=== PATIENT | female | born 1975 | race Caucasian/White ===

== ENCOUNTER → 2016-12-15 | Outpatient (CLI) | payer OTHER | LOC: CIMAGING 07:49 | PROVIDERS: ATTEND Family Medicine | DX: Z12.31 Encounter for screening mammogram for malignant neoplasm of breast (principal) | CPT/HCPCS: G0202 ==

== ENCOUNTER → 2017-03-30 | Outpatient (CLI) | payer OTHER | LOC: FIMAGING 08:32 | PROVIDERS: ATTEND Advanced Practice Midwife | DX: O09.522 Supervision of elderly multigravida, second trimester (principal); Z3A.12 12 weeks gestation of pregnancy ==

== ENCOUNTER → 2017-05-24 | Outpatient (CLI) | payer OTHER | LOC: FIMAGING 13:29 | PROVIDERS: ATTEND Advanced Practice Midwife | DX: O09.522 Supervision of elderly multigravida, second trimester (principal); Z3A.20 20 weeks gestation of pregnancy ==

== ENCOUNTER 2017-10-04 08:00 | Inpatient (IN) | payer OTHER ==
--- NOTE | 2017-09-17 13:41 | GHP ---
[f rep st] PREOP HISTORY AND PHYSICAL PLANNED PROCEDURE: Repeat low transverse section with bilateral salpingectomy. INDICATIONS: History of previous low transverse section and family status is complete. Mary zamora is a 41-year-old 3, para 1-0-1-1, who will be 39+ weeks gestation, who has a history of a previous low transverse section and declines trial of labor and would like to have a repea t section. Patient's estimated date of confinement is 10/08/2017, dated by last menstrual p eriod of 01/01/2017, consistent with a first trimester ultrasound. Patient initiated care w [facility] at 12 weeks of gestation. has been uncomplicated. She has had in creased surveillance due to AMA, but growth has been appropriate. MEDICAL HISTORY: Significant for cervical dysplasia, history of asthma, history of depression which is primarily situational. MEDICATIONS: vitamins, DHA, and folic acid. SURGICAL HISTORY: Primary low transverse section, voluntary termination of , shoul ronak surgeries, foot surgery. ALLERGIES: Latex. No known drug allergies. SOCIAL HISTORY: Patient is . She lives with her and their other child. 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 She denies tobacco, alcohol, or drug use. FAMILY MEDICAL HISTORY: Noncontributory. [employer]ARE HISTORY: Menarche age 18, periods every 28 days. She is a 3, para 1-0-1-1. In 2013 she had a voluntary termination of . In 06/2015, she had a primary low transverse section at 40 and 2/7 weeks' gestation of a 7-pound, 6-ounce female. She had a section for intolerance of labor remote from delivery. She had a nuchal cord x1 and marginal cord insertio n. course was complicated by baby blues, which did not progress to depression. Current has been uncomplicated. Patient does have a history of abnormal Pap smears. She has just had colposcopies. No history of LEEP or cryo surgery noted. She has a history of HPV. De nies any history of any other sexually transmitted diseases. REVIEW OF SYSTEMS: 10-point review of systems is negative. She has positive movement. No los s of fluid. She denies any headache, changes in vision, nausea, vomiting, fevers, or chills. PHYSICAL EXAMINATION: VITAL SIGNS: Stable. GENERAL APPEARANCE: Alert and oriented x3. PSYCH: Ap propriate affect. NECK: Mobile and supple. MUSCULOSKELETAL: Grossly intact. NEURO: Grossly inta ct. ABDOMEN: Gravid, nondistended, nontender. EXTREMITIES: No calf tenderness or edema. PELVIC: Cervical exam is declined. in the vertex presentation. LABS: Blood type O positive. Antibody screen negative. Rubella immune. GBS is still pend ing. HBsAg negative. HIV negative. Her 50 g glucose was normal. ASSESSMENT AND PLAN: 41-year-old, 3, para 1-0-1-1, who will be 39+ weeks' gestation for a re peat low transverse section with a bilateral salpingectomy. Risks and benefits have been re viewed with the patient, and patient has been properly consented. /[id number]/MODL
[2017-10-04] MEDS ORDERED: CITRIC ACID/SODIUM CITRATE 30 ML UDCUP PO ONE (08:24)
[2017-10-04] MEDS ORDERED: LR 500 ML IV ONE (08:24)
[2017-10-04] MEDS ORDERED: LR 1,000 ML IV SCH (08:30)
[2017-10-04 09:23] LABS: PLATELET COUNT 220 10^3/uL (150-400)
[2017-10-04] MEDS ORDERED: AMMONIA AROMATIC 1 EACH AMP IH ONE (10:01)
[2017-10-04] MEDS ORDERED: TERBUTALINE SULFATE 1 MG/ML VIAL ONE (10:01)
[2017-10-04] MEDS ORDERED: MISOPROSTOL 200 MCG TAB ONE (10:01)
[2017-10-04] MEDS ORDERED: OXYTOCIN 10 UNIT/ML VIAL ONE (10:01)
[2017-10-04] MEDS ORDERED: ceFAZolin 2 GM/DEXTROSE 100 ML IV ONE (10:33)
--- NOTE | 2017-10-04 10:34 | PREANESOB ---
Obstetric Pre-Anesthesia Info - General Info Proposed Procedure: Repeat C Section. : 3 Para: 1 DANYELLE: 10/08/17 Gestational Age: 39 week(s) and 3 day(s) - Info Status: Full Term Monitors: External FHR Pattern: Reassuring - Labor Status Section History: Repeat Indications for Current Section: Elective/Repeat Labor Epidural: No Anesthesia ROS: Prior C Section with epidural. Prior general anesthesia for shoulder surgery. Allergies/Adverse Reactions: Allergy/AdvReac Type Severity Reaction Status Date / Time No Known Allergies Allergy Verified 02/16/12 03:02 Home Medications: Medication Instructions Recorded Citalopram Hydrobromide [celeXA 10 10 mg PO DAILY 02/16/12 MG] Hydrocodone/APAP 5/325 [[place] 1 - 2 tab PO Q4 PRN #7 tab 07/02/15 5/325 (*)] Ibuprofen [Motrin (*)] 600 mg PO Q6 PRN #0 tab 07/02/15 Iron Polysacch/Iron Heme Polyp 28 mg PO BID #0 tab 07/02/15 [Bifera] Magnesium Hydroxide [Milk of 30 ml PO DAILY PRN #0 udcup 07/02/15 Magnesia (*)] Polyethylene Glycol 3350 [Miralax 17 gm PO DAILY PRN #0 pkt 07/02/15 17 gm (*)] Sennosides/Docusate Sodium 1 - 2 tab PO BID #0 tab 07/02/15 [Senokot-S] Simethicone [Mylicon] 80 mg PO .TIDMEALS AND HS PRN #0 07/02/15 tab.chew Visit Medications: Generic Name Dose Route Start Last Admin Trade Name Freq PRN Reason Stop Dose Admin Lactated Ringer's 1,000 mls @ 125 mls/hr 10/04/17 08:30 10/04/17 09:22 Lr IV 10/05/17 08:29 1,000 mls CONT KATHERINE Administration Discontinued Medications Generic Name Dose Route Start Last Admin Trade Name Freq PRN Reason Stop Dose Admin Ammonia (Aromatic Spirit) Confirm 10/04/17 10:01 Ammonia Aromatic Administered 10/04/17 10:02 Dose 1 each IH .STK-MED ONE Citric Acid/Sodium Citrate 30 ml 10/04/17 08:24 Bicitra PO 10/04/17 08:25 ONCALL ONE Lactated Ringer's 500 mls @ 0 mls/hr 10/04/17 08:24 Lr IV 10/04/17 08:25 ONCE ONE As Directed Misoprostol Confirm 10/04/17 10:01 Cytotec Administered 10/04/17 10:02 Dose 1,000 mcg .ROUTE .STK-MED ONE Oxytocin Confirm 10/04/17 10:01 Pitocin Administered 10/04/17 10:02 Dose 40 unit .ROUTE .STK-MED ONE Terbutaline Sulfate Confirm 10/04/17 10:01 Brethine Administered 10/04/17 10:02 Dose 1 mg .ROUTE .STK-MED ONE - Anesthesia History Response to Local Anesthetics: Normal Anesthesia & Operative History: No Prior Problems Family Anesthesia History: Negative - Social History Substance Use/Abuse: Denies - Vital Signs Blood Pressure: 101/74 Heart Rate: 72 Height/Weight (Nursing): Height 160.02 cm Weight 72.575 kg - Focused Exam Neck exam: FROM Mallampati Score: Class 1 Mouth exam: normal dental/mouth exam Pulmonary: no respiratory distress Cardiovascular: regular rate and rhythym Labs: 10/04/17 09:09 Patient ABO/Rh O POSITIVE 10/04/17 09:09 - Plan Anesthetic Plan: SAB Consent Signed and on Chart: Yes Patient/Guardian Understands and Agrees to Plan: Yes
[2017-10-04] MEDS ORDERED: morphINE PF 5 MG/10 ML INJ ONE (11:07)
[2017-10-04] MEDS ORDERED: fentaNYL 100 MCG/2 ML INJ ONE (11:08)
[2017-10-04] MEDS ORDERED: ONDANSETRON 4 MG/2 ML VIAL ONE ×2 (11:38→12:28)
[2017-10-04] MEDS ORDERED: PHENYLEPHRINE HCL 100 MCG/ML SYR ONE (11:39)
[2017-10-04] MEDS ORDERED: DEXAMETHASONE 4 MG/ML VIAL ONE ×2 (11:39→12:28)
[2017-10-04] MEDS ORDERED: OXYTOCIN 100 UNITS/10 ML VIAL ONE (11:39)
[2017-10-04] MEDS ORDERED: PHENYLEPHRINE HCL 100 MCG/ML SYR IVP PRN (13:03)
[2017-10-04] MEDS ORDERED: NALOXONE HCL 0.4 MG/ML INJ IVP PRN (13:03)
[2017-10-04] MEDS ORDERED: ONDANSETRON 4 MG/2 ML VIAL IVP PRN (13:03)
--- NOTE | 2017-10-04 13:08 | POSTANESTH ---
Post Anesthetic Evaluation Cardiovascular Status: Normal, Stable, Similar to Pre-Op Cond Respiratory Status: Normal, Stable, Similar to Pre-op Cond. Level of Consciousness/Mental Status: Can Participate in Eval, Alert and Oriented Pain Control: Adequate, Prn Tx Ordered Nausea/Vomiting Control: Adequate, Prn Tx Ordered Complications Possibly Related to Anesthesia: None Noted
[2017-10-04] MEDS ORDERED: SIMETHICONE 80 MG TAB CHEW PO PRN (14:19)
[2017-10-04] MEDS ORDERED: MAGNESIUM HYDROXIDE 30 ML UDCUP PO PRN (14:19)
[2017-10-04] MEDS ORDERED: PROMETHAZINE HCL 25 MG/ML INJ IVP PRN (14:19)
[2017-10-04] MEDS ORDERED: BISACODYL 10 MG SUPP PR PRN (14:19)
[2017-10-04] MEDS ORDERED: DOCUSATE SODIUM 100 MG CAP PO PRN (14:19)
[2017-10-04] MEDS ORDERED: HYDROCODONE/APAP 5/325 TAB PO PRN (14:19)
[2017-10-04] MEDS ORDERED: LACTULOSE 20 GM/30 ML UDCUP PO PRN (14:19)
[2017-10-04] MEDS ORDERED: KETOROLAC 30 MG/1 ML SDV ONE (14:35)
--- NOTE | 2017-10-04 14:35 | OBDEL ---
Info Type: Repeat Presentation at Delivery: Vertex L&D Analgesia/Anesthesia Type: Spinal GBS+: No Intrapartum Medications: Generic Name Dose Route Start Last Admin Trade Name Freq PRN Reason Stop Dose Admin Lactated Ringer's 1,000 mls @ 125 mls/hr 10/04/17 08:30 10/04/17 09:22 Lr IV 10/05/17 08:29 1,000 mls CONT KATHERINE Administration Discontinued Medications Generic Name Dose Route Start Last Admin Trade Name Freq PRN Reason Stop Dose Admin Cefazolin Sodium/Dextrose 100 mls @ 200 mls/hr 10/04/17 10:33 10/04/17 10:55 Ancef 2 Gm IV 10/04/17 11:02 100 mls ONCALL ONE Administration Protocol - Hospital Course Intrapartum: 10/04/17 14:32 uncomplicated delivery. right hematoma lateral to uterus. Indications for Delivery: Elective Operative Report - Delivery Pre-op Diagnoses: IUP 39 weeks, history of previous c section, declines trial of labor, family status complete Post-op Diagnoses: same as pre op plus nuchal cord x 2, right sided hematoma History of Prior Section: Yes Number of Prior Sections: 1 Indications for Prior Section: Non-reas. Status Indications for Current Section: Elective/Repeat Procedure: Scheduled, Low Transverse, Tubal Ligation Surgeon: Cinthia Oquendo Industrial Diamond Polisher: Cindi Romano Anesthesiologist: Desean Del Angel Complications: Nucal Cord (x2) Findings: hematoma lateral to right side of uterus Specimen(s)/Path: Fallopian Tube(s) EBL: [address] [place] Data DANYELLE: 10/08/17 Gestational Age: 39 week(s) and 3 day(s) Zee Delivery Date: 10/04/17 Delivery Time: 11:51 Sex of Infant: Male Weight (gm): 3826 g Score (1 Min): 8 Score (5 Min): 9 ICD10 Worksheet Patient Problems: Problems Problem Status Onset delivery delivered Acute
[2017-10-04] MEDS: KETOROLAC 30 MG/1 ML SDV IVP SCH ×2 (14:40→20:53)
--- NOTE | 2017-10-04 18:28 | OBPP ---
Progress Note Assessment/Plan: Assessment: p2 ppd#0 s/p rltcs with bilateral salpingectomy right broad ligament hematoma breast feeding Plan: routine post and post operative care monitor hct due to hematoma 10/04/17 18:23 Subjective/ Course: 10/04/17 18:26 patient is doing well. pain is well controlled. normal lochia. recovery has been much easier than after g1. denies headache and changes in vision. tolerating diet. no concerns. working on breast feeding. Objective: 10/04/17 09:09 Patient ABO/Rh O POSITIVE 10/04/17 09:09 Temp Pulse Resp BP Pulse Ox 36.8 C 56 L 16 116/77 98 10/04/17 15:15 10/04/17 15:15 10/04/17 15:15 10/04/17 15:15 10/04/17 15:15 Physical Exam - Physical Exam Neck: non-tender, full range of motion, supple Respiratory: chest non-tender, lungs clear, normal breath sounds Cardiac/Chest: normal peripheral pulses, regular rate, rhythm Abdomen: normal bowel sounds, non-tender Extremities: normal range of motion, non-tender, normal inspection, normal capillary refill Skin: normal color, warm/dry Neuro/Psych: no motor/sensory deficits, alert, normal mood/affect, oriented x 3
[2017-10-04] MEDS: ACETAMINOPHEN 325 MG TAB PO SCH (18:35)
--- NOTE | 2017-10-04 19:19 | GOP ---
[f rep st] OPERATIVE REPORT DATE OF OPERATION: 10/04/2017 SURGEON: Cinthia Oquendo DO ORTHOTIST OR PROSTHETIST: 1. CATHERINE Valencia. 2. Katty, certified nurse-radio electrician. ANESTHESIA: Spinal. ANESTHESIOLOGIST: Desean Del Angel MD. PREOPERATIVE DIAGNOSIS: Intrauterine at 39+ weeks, history of previous low transverse cesa rean section. Declines trial of labor. Family status complete. POSTOPERATIVE DIAGNOSIS: Intrauterine at 39+ weeks, history of previous low transverse simran arean section. Declines trial of labor. Family status complete. Plus nuchal cord times 2, plus occ iput posterior, plus right broad ligament hematoma. PROCEDURE PERFORMED: FINDINGS: 1. Viable male infant in the cephalic presentation, delivered at 11:51 a.m. 's were 8 and 9. 2. Intact placenta with 3-vessel cord. 3. Normal ovaries, uterus and tubes. 4. Hematoma on the right broad ligament. SPECIMENS: Bilateral fallopian tubes. INDICATIONS: The patient is a 41-year-old 3, para 2-0-1-2, who is 39+ weeks gestation. She has a history of a previous low transverse section for nonreassuring heart tones remot e from delivery. She declined trial of labor and elected for repeat low transverse section. The patient was properly consented. DESCRIPTION OF PROCEDURE: The patient was taken to the operating room with intravenous fluids in lucio ce. She was given 2 g of Ancef intravenously. She was then placed on the operating room table where she was then seated on the operating room table where anesthesia was obtained. She was then reposit ioned into the dorsal supine position with a leftward tilt. A Pablo catheter was then placed. Venod yne's were placed on her lower extremities. She was then prepped and draped in normal sterile fashio n. Anesthesia was assessed and found to be adequate. A Pfannenstiel skin incision was then made 2 f ingerbreadths above the pubic symphysis. The incision was then carried through to the underlying lay er of fascia with the Bovie. The fascia was then nicked in the midline and the fascial incision was extended laterally. The superior aspect of the fascial incision was then grasped with a Shayna, tent ed up and the underlying rectus muscle dissected off bluntly with the Bovie. Attention was then turn ed to the inferior aspect of the fascial incision, which in a similar fashion was grasped with a Hernandez er, tented up, and the underlying rectus muscle dissected off bluntly with the Bovie. The rectus mus moshe was then in the midline. The peritoneum was identified, tented up, and entered sharply with the Metzenbaum scissors. The incision was extended superiorly and inferiorly with excellent vi sualization of the bladder and the bladder blade was then inserted. The vesicouterine peritoneum was identified, tented up and entered sharply with the Metzenbaum scissors. The incision was extended l aterally and the bladder flap was created digitally. The bladder blade was then reinserted. The lumbee idania was then incised in a low transverse fashion with the scalpel. The uterine incision was extended laterally. Membranes were artificially ruptured. A large amount of clear fluid was noted. The hea d was noted to not be well engaged within the pelvis. The 's head was then delivered through t he incision. Nuchal cord x2 was reduced. The remainder of the was delivered without difficul ty. Delayed cord clamping x1 minute was done. Cord was clamped x2 and cut. Cord blood was obtained . The infant was handed off to awaiting nurse practitioner. Intact placenta with 3-vessel cord delivered without difficulty. The uterus was then exteriorized and cleared of all clots and heather ris and wrapped in a moist laparotomy sponge. An 0 Vicryl stitch was used to close the uterine incis ion. A 2nd 0 Vicryl stitch was used to imbricate the uterine incision. A hematoma was noted in the right broad ligaments superior and lateral to the hysterotomy site. Then an 0 Vicryl stitch was used in a running locked fashion to tamponade off the hematoma. It was noted to be extending somewhat la teral to the area of tamponade; however, it did not increase in size at all during the observation, d uring the tubal ligation which was performed next. The left fallopian tube was then grasped with a Kemp and gently tented up. The mesosalpinx was ca uterized in avascular areas and the vessels were then doubly suture ligated with 0 Vicryl stitch and the fallopian tube was excised without difficulty. The same procedure was performed on the contralat eral side. Hemostasis was assured. The area of the hematoma was evaluated and found to be not sprea ding or expanding in any way. The pelvis was cleared of all clots. The uterus then returned to the patient's abdomen. The sites of the tubal ligation were explored and found to be hemostatic. The ar ea of the hematoma was closely observed for an additional 5 minutes and no expanding was noted. The gutters were cleared of all clots. The peritoneum was reapproximated with 3-0 Vicryl in a running fa shion, rectus muscles was reapproximated with 2-0 Vicryl in a running fashion. The fascia was closed with 0 Vicryl in a running fashion. The Wagner's tissue was reapproximated with 3-0 Vicryl in a run malinda fashion and the skin was then closed with ewa. Sponge, lap, and needle count were correct x 2. The patient was transported to recovery room in stable condition. SURGEON: Cinthia Oquendo DO. /[id number]/MODL
[2017-10-04] MEDS: SENNOSIDES/DOCUSATE SODIUM TAB PO SCH (20:52)
[2017-10-05] MEDS: ACETAMINOPHEN 325 MG TAB PO SCH ×4 (01:07→19:35)
[2017-10-05] MEDS: KETOROLAC 30 MG/1 ML SDV IVP SCH ×2 (02:54→08:45)
--- NOTE | 2017-10-05 10:36 | OBPP ---
Progress Note Assessment/Plan: Assessment: p2 ppd#1 s/p rltcs with bilateral salpingectomy right broad ligament hematoma breast feeding Anemia Plan: routine post and post operative care monitor hct due to hematoma - added daily iron 10/05/17 18:33 Subjective/ Course: 10/04/17 18:26 patient is doing well. pain is well controlled. normal lochia. recovery has been much easier than after g1. denies headache and changes in vision. tolerating diet. no concerns. working on breast feeding. 10/05/17 18:34 Feeling good. Pain well controlled. Normal lochia. Tolerating regular diet this morning, passing gas. Working on - went well overnight. No concerns Objective: 10/05/17 05:45 Patient ABO/Rh O POSITIVE 10/04/17 09:09 Temp Pulse Resp BP Pulse Ox 36.2 C 78 14 99/59 L 93 10/05/17 08:00 10/05/17 08:00 10/05/17 08:00 10/05/17 08:00 10/05/17 08:00 Uterine Position/Fundal Height: Umbilicus -1 Uterine Tone: Firm Physical Exam - Physical Exam EENT: PERRL/EOMI Neck: non-tender Respiratory: lungs clear, normal breath sounds Cardiac/Chest: normal peripheral pulses, regular rate, rhythm, edema (trace lower leg) Abdomen: hypoactive bowel sounds, dressing (dry - will remove in shower today) Extremities: normal range of motion Skin: normal color, warm/dry Neuro/Psych: alert, normal mood/affect, oriented x 3
[2017-10-05] MEDS ORDERED: oxyCODONE IR 5 MG TAB PO PRN (10:56)
[2017-10-05] MEDS: POLYETHYLENE GLYCOL 3350 17 GM PKT PO PRN ×2 (13:11→21:43)
[2017-10-05] MEDS: FERROUS SULFATE 325 MG TAB PO SCH (13:12)
[2017-10-05] MEDS: IBUPROFEN 600 MG TAB PO SCH ×2 (16:10→21:42)
[2017-10-05] MEDS: SENNOSIDES/DOCUSATE SODIUM TAB PO SCH (21:43)
[2017-10-06] MEDS: ACETAMINOPHEN 325 MG TAB PO SCH ×4 (00:25→21:29)
[2017-10-06] MEDS: IBUPROFEN 600 MG TAB PO SCH ×4 (03:47→21:29)
[2017-10-06] MEDS: SENNOSIDES/DOCUSATE SODIUM TAB PO SCH ×2 (09:40→21:30)
[2017-10-06] MEDS: FERROUS SULFATE 325 MG TAB PO SCH (09:40)
--- NOTE | 2017-10-06 10:09 | OBPP ---
Progress Note Assessment/Plan: Assessment: 1) s/p RCS and b/l salpingectomy POD # 2 - pt is stable 2) R broad ligament hematoma - stable 3) Anemia - asymptomatic Plan: Continue routine post-op care Encourage ambulation Cont iron Plan for d/c home in am 10/0710/06/17 10:09 Subjective/ Course: 10/04/17 18:26 patient is doing well. pain is well controlled. normal lochia. recovery has been much easier than after g1. denies headache and changes in vision. tolerating diet. no concerns. working on breast feeding. 10/05/17 18:34 Feeling good. Pain well controlled. Normal lochia. Tolerating regular diet this morning, passing gas. Working on - went well overnight. No concerns 10/06/17 10:11 Pt seen and examined. Doing well, no complaints. Pain controlled with Tylenol and Motrin. Pt is OOB, cameron regular diet, voiding without difficulty, and passing flatus. No BM yet. Denies any f/c/n/v/CP or SOB. Mod lochia. BF is going well so far, working with . Denies any calf tenderness. Objective: 10/05/17 05:45 Patient ABO/Rh O POSITIVE 10/04/17 09:09 Temp Pulse Resp BP Pulse Ox 36.4 C 78 16 93/58 L 94 10/06/17 03:54 10/06/17 03:54 10/06/17 03:54 10/06/17 03:54 10/06/17 03:54 Uterine Position/Fundal Height: Umbilicus -1 Uterine Tone: Firm Physical Exam - Physical Exam General Appearance: WD/WN, alert, no apparent distress Respiratory: lungs clear, normal breath sounds Cardiac/Chest: regular rate, rhythm Abdomen: normal bowel sounds, non-tender, soft, flatus (+), incision (C/D/I, ewa intact) Extremities: non-tender, normal inspection Skin: normal color, warm/dry Neuro/Psych: alert, normal mood/affect, oriented x 3
[2017-10-06] MEDS: POLYETHYLENE GLYCOL 3350 17 GM PKT PO PRN (15:24)
[2017-10-07] MEDS: IBUPROFEN 600 MG TAB PO SCH ×2 (04:05→11:38)
[2017-10-07] MEDS: ACETAMINOPHEN 325 MG TAB PO SCH ×3 (04:05→11:38)
--- NOTE | 2017-10-07 09:36 | OBGCSDC ---
General Delivery Information - General Info : 3 Para: 2 Abortions: 1 Type: Repeat L&D Analgesia/Anesthesia Type: Spinal Admission Date: 10/04/17 Labs: Patient ABO/Rh O POSITIVE 10/04/17 09:09 Hct 30.9 % (38.0-47.0) L 10/05/17 05:45 - Hospital Course Intrapartum: 10/04/17 14:32 uncomplicated delivery. right hematoma lateral to uterus. : 10/04/17 18:26 patient is doing well. pain is well controlled. normal lochia. recovery has been much easier than after g1. denies headache and changes in vision. tolerating diet. no concerns. working on breast feeding. 10/05/17 18:34 Feeling good. Pain well controlled. Normal lochia. Tolerating regular diet this morning, passing gas. Working on - went well overnight. No concerns 10/06/17 10:11 Pt seen and examined. Doing well, no complaints. Pain controlled with Tylenol and Motrin. Pt is OOB, cameron regular diet, voiding without difficulty, and passing flatus. No BM yet. Denies any f/c/n/v/CP or SOB. Mod lochia. BF is going well so far, working with . Denies any calf tenderness. 10/07/17 09:31 S) Pt doing well, reports min pain and bleeding. she is ambulating and voiding without difficulty. She is . She desires discharge home today. O) VSS, afebrile constitutional: WNWF, A&Ox3 HEENT: normocephalic, atraumatic, supple Heart: RRR, No murmur Chest: CTA-B Abdomen: Soft, nontender Uterus: Firm at U-2 incision: slightly raised (more on the left- where tissue was everted for staple placement), no erythema, no drainage. Lochia: Minimal rubra Extremities: Trace edema, and negative Lara's sign Neuro: Grossly normal A) 41-year-old S/P repeat c/s with bilateral salpingectomy broad ligament hematoma- stable POD#3 P) Discharge home today Continue Pelvic rest x6wks Discussed danger signs (infection, preeclampsia, depression, heavy bleeding, etc ) RTO in 2/4/6 weeks - Delivery Providers Surgeon: Cinthia Oquendo Mold Stamper And Repairer: Cindi Romano Anesthesiologist: Desean Del Angel - Delivery Number of Prior Sections: 1 Indications for Current Section: Elective/Repeat Surgical Procedures: Scheduled, Low Transverse, Tubal Ligation Intra-op Complications: Nucal Cord (x2) EBL: [address] [place] Data DANYELLE: 10/08/17 Gestational Age: 39 week(s) and 6 day(s) Zee Delivery Date: 10/04/17 Delivery Time: 11:51 Sex of Infant: Male Weight (gm): 3826 g Score (1 Min): 8 Score (5 Min): 9
[2017-10-07 10:30] VITALS: BP 107/71
[2017-10-07] MEDS: SENNOSIDES/DOCUSATE SODIUM TAB PO SCH (11:38)
[2017-10-07] MEDS: FERROUS SULFATE 325 MG TAB PO SCH (11:38)
== END 2017-10-07 12:00 | disposition home or self-care (01) | DRG 765 ==
LOC: FLD 08:00 → FOB 14:50
PROVIDERS: ADMIT Obstetrics & Gynecology; ATTEND Obstetrics & Gynecology
PROC: 10D00Z1 Extraction of Products of Conception, Low, Open Approach (ICD-10-PCS; principal; 2017-10-04)
PROC: 0UB70ZZ Excision of Bilateral Fallopian Tubes, Open Approach (ICD-10-PCS; principal; 2017-10-04)
DX: O34.211 Maternal care for low transverse scar from previous cesarean delivery (principal); O71.7 Obstetric hematoma of pelvis; O69.81X0 Labor and delivery complicated by cord around neck, without compression, not applicable or unspecified; O09.523 Supervision of elderly multigravida, third trimester; Z30.2 Encounter for sterilization; Z3A.39 39 weeks gestation of pregnancy; Z37.0 Single live birth
CPT/HCPCS: J0690; J1100; J1885; J2274; J2370; J2405; J2590; J3010; J3105

== ENCOUNTER → 2018-08-31 | Outpatient (CLI) | payer OTHER | LOC: EMCIMAGING 08:55 ==